=== PATIENT | male | born 1975 | race Caucasian/White ===

== ENCOUNTER 2016-09-21 07:33 | Day surgery (SDC) | payer OTHER ==
[2016-09-20 09:19] VITALS: BMI 29.9
[~2016-09-21 07:33] MED LIST: LACTATED RINGERS 1,000 ML IV SCH; LIDOCAINE 1% 20 ML VIAL (10MG/ML) FOR IV START INTRADERMA PRN
[2016-09-21 08:00] LABS: Glucose,Whole Blood 203 mg/dL (75-99)
[2016-09-21 08:09] VITALS: RESP 16; TEMP 97.4
[2016-09-21] MEDS ORDERED: LACTATED RINGERS 1,000 ML IV ONE (08:09)
[2016-09-21] MEDS ORDERED: PROPOFOL 10 MG/ML 20 ML VIAL IV ONE (08:18)
--- NOTE | 2016-09-21 08:40 | P.PCN ---
Date of Procedure: 09/21/16 Preoperative Diagnosis: Postoperative Diagnosis: Procedure(s) Performed: Brief history: Patient is a pleasant 41-year-old white male, scheduled for an elective upper endoscopy as well as colonoscopy as a part of evaluation of iron deficiency anemia. Lately has been complaining of lower abdominal discomfort with cramping and occasional bleeding. Denies any weight loss. No family history of inflammatory bowel disease or colorectal neoplasia. Procedure performed: Esophagogastroduodenoscopy biopsy Colonoscopy and biopsy Preoperative diagnosis: Iron deficiency anemia Diarrhea and intermittent rectal bleeding Anesthesia: MAC Procedure: After informed consent was obtained from the patient was brought into the endoscopy unit and IV sedation was administered by anesthesia under continuous monitoring. Initially upper endoscopy was done. The Olympus GF 160 video endoscope was inserted inserted into the mouth and esophagus intubated without any difficulty and was gradually advanced into the stomach and duodenum and carefully examined. The bulb and second part of the duodenum appeared normal. Biopsies were done from the duodenum to rule out celiac disease. The scope was then withdrawn into the stomach adequately insufflated with air and upon careful examination the antrum had mild gastritis and biopsies were done from this area. There were small polyps noted in the fundus of the stomach that were also biopsied. The rest of body, cardia and fundus appeared normal. The scope was then withdrawn into the esophagus. The GE junction was located at 40 cm to the incisors. It appeared regular with no erythema erosions or ulcerations. Rest of the esophagus appeared normal. Patient tolerated the procedure well. At this time the patient continued to remain sedation. Initial digital rectal examination was normal. Olympus CF 160 video colonoscope was then inserted into the rectum and gradually advanced to the cecum without any difficulty. Careful examination was performed as the scope was gradually being withdrawn. The prep was excellent. The cecum, ascending colon, transverse colon, descending colon, sigmoid colon and rectum appeared normal. Retroflexion was performed in the rectum and small internal hemorrhoidse noted. random biopsies were done from ascending and descending colon to rule out metastatic/ collagenous colitis. Patient tolerated the procedure well. Impression: 1. Upper endoscopy revealed multiple small gastric polyps and mild antral gastritis 2. Colonoscopy revealed normal-appearing colon from rectum to cecum with no evidence of colitis or colorectal neoplasia. Small internal hemorrhoids seen. Recommendations: Findings of this examination were discussed with the patient as well as his family. He was advised to follow with the biopsy results. He will resume iron supplements today. Implants: Indications for Procedure: Operative Findings: Description of Procedure:
[2016-09-21 09:02] VITALS: BP 158/87; PULSE 72
== END 2016-09-21 09:27 | disposition home or self-care (01) ==
LOC: ORWHC2ENDO 07:33
PROVIDERS: ATTEND Internal Medicine Gastroenterology
DX: R19.7 Diarrhea, unspecified (principal); D50.9 Iron deficiency anemia, unspecified; K64.8 Other hemorrhoids; K62.5 Hemorrhage of anus and rectum; K31.7 Polyp of stomach and duodenum; K31.9 Disease of stomach and duodenum, unspecified; K29.70 Gastritis, unspecified, without bleeding; E11.9 Type 2 diabetes mellitus without complications; E78.5 Hyperlipidemia, unspecified; I10 Essential (primary) hypertension; K21.9 Gastro-esophageal reflux disease without esophagitis; Z79.84 Long term (current) use of oral hypoglycemic drugs; Z79.899 Other long term (current) drug therapy; Z88.5 Allergy status to narcotic agent
CPT/HCPCS: 88305; 88342; 45380; 43239; J2704